=== PATIENT | female | born 1995 | race Caucasian/White ===

== ENCOUNTER 2021-06-29 10:33 | Inpatient (IN) | payer OTHER ==
[2021-06-29 11:32] VITALS: BMI 23.4
[2021-06-29 13:47] LABS: HCG,QUALITATIVE URINE Negative
[2021-06-29 13:52] LABS: EPI CELLS 19 /uL (0-25.1); HYALINE CASTS 0 /uL (0-3.1); PH,URINE 6.5 (5.0-8.0); URINE APPEARANCE CLEAR; URINE BACTERIA 587 /uL (0-1359); URINE BILIRUBIN NEGATIVE (NEGATIVE); URINE COLOR YELLOW; URINE GLUCOSE (UA) NEGATIVE (NEGATIVE); URINE KETONE NEGATIVE (NEGATIVE); URINE LEUK ESTERASE NEGATIVE (NEGATIVE); URINE NITRITE NEGATIVE (NEGATIVE); URINE PROTEIN NEGATIVE (NEGATIVE); URINE RBC 116 /uL (0-23.9); URINE UROBILINOGEN 0.2 mg/dL (0.2-1.0); URINE WBC 8 /uL (0-25.8)
[2021-06-29] MEDS ORDERED: SODIUM CHLORIDE 1,000 ML IV STA (16:36)
[2021-06-29] MEDS ORDERED: TAMSULOSIN HCL 0.4 MG CAP PO ONE (16:37)
[2021-06-29] MEDS ORDERED: KETOROLAC TROMETHAMINE 15 MG/ML VIAL IVPUSH ONE (16:37)
[2021-06-29] MEDS ORDERED: TAMSULOSIN HCL 0.4 MG CAP ONE (17:33)
[2021-06-29] MEDS ORDERED: KETOROLAC TROMETHAMINE 30 MG/1 ML VIAL ONE (17:33)
[2021-06-29 18:09] LABS: BASO % 0.6 % (0-2.0); EOS % 1.1 % (0-4.5); HEMATOCRIT 39.8 % (32.4-45.2); HEMOGLOBIN 13.7 GM/dL (10.7-15.3); LYMPH % 22.6 % (8-40); MCH 28.7 pg (25.7-33.7); MCHC 34.4 g/dl (32.0-36.0); MEAN CELL VOLUME 83.2 fl (80-96); MEAN PLT VOLUME 8.4 fl (7.5-11.1); MONO % 4.1 % (3.8-10.2); NEUT % 71.6 % (42.8-82.8); PLATELET COUNT 269 10^3/uL (134-434); RBC 4.78 M/mm3 (3.60-5.2); RDW 13.2 % (11.6-15.6); WHITE BLOOD COUNT 9.9 K/mm3 (4.0-10.0)
[2021-06-29 18:16] LABS: INR 1.17 (0.83-1.09); PROTHROMBIN TIME (PATIENT) 13.7 SEC (9.7-13.0)
[2021-06-29 18:23] LABS: CALCIUM 9.5 mg/dL (8.5-10.1)
[2021-06-29 18:24] LABS: ALBUMIN 4.6 g/dl (3.4-5.0); BLOOD UREA NITROGEN 11.4 mg/dL (7-18)
[2021-06-29 18:27] LABS: CREATININE 0.7 mg/dL (0.55-1.3)
[2021-06-29 18:29] LABS: BILIRUBIN,TOTAL 0.6 mg/dL (0.2-1); TOT PROT 7.9 g/dl (6.4-8.2)
[2021-06-29] MEDS: SODIUM CHLORIDE 1,000 ML IV SCH (23:00)
[2021-06-30] MEDS ORDERED: ACETAMINOPHEN 1000 MG/100 ML VIAL IVPB ONE (03:11)
[2021-06-30] MEDS ORDERED: ACETAMINOPHEN INJECTION 100 ML IVPB ONE (03:53)
[2021-06-30] MEDS: SODIUM CHLORIDE 1,000 ML IV SCH (06:18)
[2021-06-30] MEDS ORDERED: TAMSULOSIN HCL 0.4 MG CAP PO SCH (08:30)
[2021-06-30 09:22] LABS: BASO % 0.4 % (0-2.0); EOS % 1.2 % (0-4.5); HEMOGLOBIN 13.1 GM/dL (10.7-15.3); LYMPH % 22.2 % (8-40); MCH 28.8 pg (25.7-33.7); MCHC 34.4 g/dl (32.0-36.0); MEAN CELL VOLUME 83.7 fl (80-96); MEAN PLT VOLUME 8.2 fl (7.5-11.1); MONO % 4.9 % (3.8-10.2); NEUT % 71.3 % (42.8-82.8); PLATELET COUNT 238 10^3/uL (134-434); RBC 4.55 M/mm3 (3.60-5.2); RDW 13.2 % (11.6-15.6); WHITE BLOOD COUNT 10.1 K/mm3 (4.0-10.0)
[2021-06-30 09:29] LABS: INR 1.26 (0.83-1.09); PROTHROMBIN TIME (PATIENT) 14.2 SEC (9.7-13.0)
[2021-06-30 09:49] LABS: CALCIUM 8.8 mg/dL (8.5-10.1)
[2021-06-30 09:50] LABS: BLOOD UREA NITROGEN 10.6 mg/dL (7-18)
[2021-06-30 09:52] LABS: URIC ACID 3.1 mg/dL (2.6-7.2)
[2021-06-30 09:53] LABS: CREATININE 0.7 mg/dL (0.55-1.3); PHOSPHOROUS 3.6 mg/dL (2.5-4.9)
[2021-06-30] MEDS ORDERED: CEFTRIAXONE 1,000 MG in DEXTROSE 5%-WATER - 50 ML IVPB SCH (10:30)
[2021-06-30] MEDS ORDERED: CEFTRIAXONE 1 GM in DEXTROSE 5%-WATER - 50 ML IVPB SCH (10:31)
[2021-06-30 13:21] VITALS: BP 118/76; PULSE 74; TEMP 98.3
== END 2021-06-30 14:46 | disposition home or self-care (01) | DRG 465 ==
LOC: JER 10:33 → JERBED 18:19 → J5S 06-30 05:02
PROVIDERS: ADMIT Internal Medicine
DX: N13.2 Hydronephrosis with renal and ureteral calculous obstruction (principal); U07.1 COVID-19; M54.9 Dorsalgia, unspecified; K21.9 Gastro-esophageal reflux disease without esophagitis; R31.9 Hematuria, unspecified
CPT/HCPCS: 36415; 74176-TC; 80048; 80053; 81003; 84100; 84550; 84703; 85025; 85610; 87086; 93005; 93010; 99285-25; C9803; J0131; U0003; U0005